=== PATIENT | male | born 1950 | race Caucasian/White ===

== ENCOUNTER → 2024-06-07 12:55 | Outpatient (REF) | payer OTHER, SELFPAY | LOC: HWRCS 12:55 | PROVIDERS: ATTENDING PHYSICIAN Internal Medicine Cardiovascular Disease; FAMILY PHYSICIAN Internal Medicine | DX: I10 Essential (primary) hypertension (principal); I77.810 Thoracic aortic ectasia; I35.0 Nonrheumatic aortic (valve) stenosis | CPT/HCPCS: 93306 ==